=== PATIENT | male | born 1980 | race African-American/Black ===

== ENCOUNTER 2018-12-23 15:19 | Emergency (ER) | payer BC ==
[2018-12-23 15:26] VITALS: BP 155/89
[2018-12-23] MEDS ORDERED: METHYLPREDNISOLONE INJ 125 MG/2 ML SDV IM ONE (16:17)
--- NOTE | 2018-12-23 16:22 | ER Document Report ---
HPI - HPI Time Seen by Provider: 12/23/18 15:57 Pain Level: 3 Notes: Patient is a 38-year-old male who presents complaining of a rash to his left torso and left upper arm for the last 3 to 4 days. Patient states he did give plasma a few days before that, but has not had any pain or drainage from the site. Patient states that he does have irritation from the rash and some itching associated. He is not aware of any contact with plants, animals, eating new foods or on any other medicines that are new for him. He does have a history of hypertension. Denies drug allergies. No history of chickenpox. Denies any headache, fever, neck pain, URI, sore throat, chest pain, palpitations, syncope, cough, shortness of breath, wheeze, dyspnea, abdominal pain, nausea/vomiting/diarrhea, urinary retention, dysuria, hematuria, loss of control of bowel or bladder, numbness/tingling, muscle paralysis/weakness. - ROS Systems Reviewed and Negative: Yes All other systems reviewed and negative Past Medical History - Social History Smoking Status: Never Smoker Family History: Reviewed & Not Pertinent - Past Medical History Cardiac Medical History: Reports: Hx Hypertension - Immunizations Hx Diphtheria, Pertussis, Tetanus Vaccination: Yes Vertical Provider Document - CONSTITUTIONAL Agree With Documented VS: Yes Notes: PHYSICAL EXAMINATION: GENERAL: Well-appearing, well-nourished and in no acute distress. HEAD: Atraumatic, normocephalic. EYES: Pupils equal round and reactive to light, extraocular movements intact, sclera anicteric, conjunctiva are normal. ENT: Nares patent and without discharge. oropharynx clear without exudates. No tonsilar hypertrophy or erythema. Moist mucous membranes. NECK: Normal range of motion, supple without lymphadenopathy LUNGS: Breath sounds clear to auscultation bilaterally and equal. No wheezes rales or rhonchi. HEART: Regular rate and rhythm without murmurs, rubs, gallops. Musculoskeletal: FROM to passive/active. Strength 5+/5. Extremities: No cyanosis, clubbing, or edema b/l. Peripheral pulses 2+. Capillary refill less than 3 seconds. NEUROLOGICAL: Cranial nerves grossly intact. Normal speech, normal gait. Normal sensory, motor exams PSYCH: Normal mood, normal affect. SKIN: vesicular erythemic rash to the left trunk, axilla, and proximal left arm. There is also a small area to the rt neck. No fluctuance or abscess. Non- tender. - INFECTION CONTROL TRAVEL OUTSIDE OF THE [place] IN LAST 30 DAYS: No Course - Re-evaluation Re-evalutation: 12/23/18 16:19 Dr. Jacqueline camp'd pt and agrees with plan/dispo: Patient is an afebrile, well-hydrated, 38-year-old male who presents with nonspecific skin rash, suspect contact dermatitis. Shingles was within the differential, but crosses multiple dermatomes and does not have a history of chickenpox. No significant pain or tenderness associated. Vitals are acceptable without significant tachycardia, tachypnea, or hypoxia. PE is otherwise unremarkable. Patient is nontoxic-appearing and is tolerating p.o. without difficulty. Solu-Medrol given IM. Low suspicion for any necrotizing fasciitis, SJS, SSS, drug reaction, sepsis, meningitis, syphilis, Lyme disease, Darrington spotted fever, or other systemic emergent condition at this time. Patient aware that condition can change from initial presentation and he needs to monitor symptoms closely and seek medical attention with any acute changes. We will send home with a steroid taper as well. Recheck with your PCM in 2 to 3 days. Consider consult with dermatology. Return to the ED with any other worsening/concerning symptoms as reviewed. Patient is in agreement. - Vital Signs Vital signs: Temp Pulse Resp BP Pulse Ox 98.3 F 83 20 155/89 H 96 12/23/18 15:25 12/23/18 15:25 12/23/18 15:25 12/23/18 15:25 12/23/18 15:25 Discharge - Discharge Clinical Impression: Rash and nonspecific skin eruption Contact dermatitis Qualifiers: Contact dermatitis type: unspecified Contact dermatitis trigger: unspecified trigger Qualified Code(s): L25.9 - Unspecified contact dermatitis, unspecified cause Condition: Stable Disposition: HOME, SELF-CARE Instructions: Contact Dermatitis ([facility]) Additional Instructions: Keep the skin clean Wash with soap and water Keep the skin covered Tylenol/ibuprofen if needed Triple antibiotic ointment daily for any break in the skin Take medication as directed Monitor for any worsening symptoms Recheck with your PCM in 2-3 days Consider consult with dermatology for ongoing/worsening symptoms Return to the ED with any worsening symptoms and/or development of fever, headache, chest pain, palpitations, syncope, shortness of breath, trouble breathing, abdominal pain, n/v/d, abscess, purulent discharge, red streaks, worsening swelling, or other worsening symptoms that are concerning to you. Prescriptions: Prednisone [Deltasone 10 mg Tablet] 10 mg PO DAILY #18 tablet Forms: Elevated Blood Pressure Referrals: RISSA MERLOS DO [ACTIVE STAFF] - Follow up as needed
== END 2018-12-23 16:32 | disposition home or self-care (01) ==
LOC: ER 15:19
DX: L25.9 Unspecified contact dermatitis, unspecified cause (principal); I10 Essential (primary) hypertension
CPT/HCPCS: 99282; 96374; 87252; J2930

== ENCOUNTER 2019-01-29 06:03 | Emergency (ER) | payer OTHER, BC ==
--- NOTE | 2019-01-29 06:45 | ER Document Report ---
HPI - HPI Time Seen by Provider: 01/29/19 06:29 Pain Level: 4 Context: Patient is a 38-year-old male who presents to the emergency department with bilateral foot pain. Patient states that after working in the [employer] all day and being on his feet he developed bilateral foot pain. Patient states that it is worse with ambulating long distances. Patient states he has never had this type of pain before. Patient denies history of diabetes or skin breakdown. Patient denies injury. States that with his job he is up on his feet constantly. - MUSCULOSKELETAL Musculoskeletal: REPORTS: Extremity pain - bilateral feet Past Medical History - General Information source: Patient - Social History Smoking Status: Current Every Day Smoker Cigarette use (# per day): Yes - 6 cigarettes/day Chew tobacco use (# tins/day): No Frequency of alcohol use: None Drug Abuse: None Lives with: Alone Family History: Reviewed & Not Pertinent Patient has suicidal ideation: No Patient has homicidal ideation: No - Past Medical History Cardiac Medical History: Reports: Hx Hypertension Pulmonary Medical History: Reports: None EENT Medical History: Reports: None Neurological Medical History: Reports: None Endocrine Medical History: Reports: None Renal/ Medical History: Reports: None. Denies: Hx Peritoneal Dialysis Malignancy Medical History: Reports None GI Medical History: Reports: None Musculoskeletal Medical History: Reports None Skin Medical History: Reports None Psychiatric Medical History: Reports: None Traumatic Medical History: Reports: None Infectious Medical History: Reports: None Surgical Hx: Negative - Immunizations Hx Diphtheria, Pertussis, Tetanus Vaccination: Yes Vertical Provider Document - CONSTITUTIONAL Agree With Documented VS: Yes Exam Limitations: No Limitations General Appearance: No Apparent Distress - INFECTION CONTROL TRAVEL OUTSIDE OF THE [place] IN LAST 30 DAYS: No - HEENT HEENT: Atraumatic, Normocephalic, PERRLA - NECK Neck: Normal Inspection - RESPIRATORY Respiratory: Breath Sounds Normal, No Respiratory Distress - CARDIOVASCULAR Cardiovascular: Regular Rate, Regular Rhythm - GI/ABDOMEN Gastrointestinal: Abdomen Soft, Abdomen Non-Tender - BACK Back: Normal Inspection - MUSCULOSKELETAL/EXTREMETIES Notes: Upon evaluation patient's feet have a significant foul odor, there is no lesions, skin breakdown, or lacerations. Patient has multiple calluses to the volar aspect of the foot. There is no erythema or edema. Patient has +2 dorsalis pedi and posterior tibial pulses bilaterally, is noted to have pain with palpation to calcaneus bone bilaterally and the lateral aspect of both feet. - NEURO Level of Consciousness: Awake, Alert, Appropriate - DERM Integumentary: Warm Course - Re-evaluation Re-evalutation: 01/29/19 06:56 Initial evaluation was noted that the patient not take care of his feet appropriately as they had a significant foul odor. There was no obvious infection or open wounds. Patient states he is not a diabetic. Patient did have his work shoes on without socks. Patient states he does not wear socks to work and sweats all the time. Patients work shoes are significantly worn down and do not provide adequate support. I did educate the patient to wear socks, to keep his feet clean and dry and when possible wear supportive shoes as this should help with his discomfort. Patient states he did take Tylenol last night for his discomfort which did improve his pain. Patient instructed to take Tylenol and ibuprofen as needed for pain. Will provide patient with a work note for 1 day - Vital Signs Vital signs: Temp Pulse Resp BP Pulse Ox 97.5 F 78 17 140/83 H 96 01/29/19 06:09 01/29/19 06:09 01/29/19 06:09 01/29/19 06:09 01/29/19 06:09 Discharge - Discharge Clinical Impression: Foot pain, bilateral Condition: Stable Disposition: HOME, SELF-CARE Additional Instructions: Today you were seen in the emergency department for bilateral foot pain. Upon evaluation I do not believe a x-ray is needed as there is no injury, deformity or signs of infection. Please keep your feet clean and dry. Please wear socks as this can help absorb the sweat while you work. Wearing a more supportive shoe with cushion may help with your discomfort. I am providing you with a 1 day work note, please rest and elevate your feet and return to the emergency department for any worsening signs or symptoms to include feet swelling, redness, skin breakdown, fever or inability to ambulate. Forms: Return to Work
[2019-01-29] MEDS ORDERED: IBUPROFEN 600 MG TABLET PO ONE (07:01)
[2019-01-29 07:08] VITALS: BP 140/72
== END 2019-01-29 07:08 | disposition home or self-care (01) ==
LOC: ER 06:03
DX: M79.671 Pain in right foot (principal); M79.672 Pain in left foot; F17.210 Nicotine dependence, cigarettes, uncomplicated; I10 Essential (primary) hypertension
CPT/HCPCS: 99283

== ENCOUNTER 2019-02-15 09:33 | Emergency (ER) | payer BC, OTHER ==
[2019-02-15 09:41] VITALS: BP 157/96
--- NOTE | 2019-02-15 09:54 | ER Document Report ---
HPI - HPI Time Seen by Provider: 02/15/19 09:53 Pain Level: 0 Notes: Patient is a 38-year-old male with a history of hypertension who presents for medication refill of his lisinopril/HCTZ 20-12.5 mg. Patient states that he ran out recently and needs a prescription until he can get a refill from his family doctor. Patient states that he has been taking the medicine for some time now and tolerates it very well. He otherwise feels well. He is eating and drinking without difficulty. He is urinating normally and having normal bowel movements. No other concerns or complaints. Denies any headache, fever, neck pain, changes in vision/speech/mentation/hearing, URI, sore throat, chest pain, palpitations, syncope, cough, shortness of breath, wheeze, dyspnea, abdominal pain, nausea/vomiting/diarrhea, urinary retention, dysuria, hematuria, or rash. - ROS Systems Reviewed and Negative: Yes All other systems reviewed and negative Past Medical History - Social History Smoking Status: Unknown if Ever Smoked Family History: Reviewed & Not Pertinent - Past Medical History Cardiac Medical History: Reports: Hx Hypertension Renal/ Medical History: Denies: Hx Peritoneal Dialysis - Immunizations Hx Diphtheria, Pertussis, Tetanus Vaccination: Yes Vertical Provider Document - CONSTITUTIONAL Agree With Documented VS: Yes Notes: PHYSICAL EXAMINATION: GENERAL: Well-appearing, well-nourished and in no acute distress. HEAD: Atraumatic, normocephalic. EYES: Pupils equal round and reactive to light, extraocular movements intact, sclera anicteric, conjunctiva are normal. ENT: Nares patent and without discharge. oropharynx clear without exudates. No tonsilar hypertrophy or erythema. Moist mucous membranes. NECK: Normal range of motion, supple without lymphadenopathy LUNGS: Breath sounds clear to auscultation bilaterally and equal. No wheezes rales or rhonchi. HEART: Regular rate and rhythm without murmurs, rubs, gallops. Extremities: No cyanosis, clubbing, or edema b/l. Peripheral pulses 2+. Capillary refill less than 3 seconds. NEUROLOGICAL: Normal speech, normal gait. PSYCH: Normal mood, normal affect. SKIN: Warm, Dry, normal turgor, no rashes or lesions noted. - INFECTION CONTROL TRAVEL OUTSIDE OF THE [place] IN LAST 30 DAYS: No Course - Re-evaluation Re-evalutation: 02/15/19 09:56 Patient is an afebrile, well-hydrated, 38-year-old male who presents for medication refill of his blood pressure medication. Vitals are acceptable without significant tachycardia, tachypnea, or hypoxia. PE is otherwise. Patient is nontoxic-appearing and tolerating p.o. without difficulty. No work- up warranted at this time. Low suspicion for any systemic emergent condition at this time. I will send him home with a prescription refill for his blood pressure medication. Recheck with your PCM in 3 to 5 days. Return to the ED with any other worsening/concerning symptoms. Patient is in agreement. - Vital Signs Vital signs: Temp Pulse Resp BP Pulse Ox 97.8 F 76 18 157/96 H 96 02/15/19 09:40 02/15/19 09:40 02/15/19 09:40 02/15/19 09:40 02/15/19 09:40 Discharge - Discharge Clinical Impression: Medication refill Condition: Stable Disposition: HOME, SELF-CARE Additional Instructions: Maintain adequate fluid and food intake Take home medications as directed Low sodium/fat diet Exercise regularly Weight control Monitor blood pressure daily and keep a log Monitor symptoms for any acute changes Recheck with your PCM in 3-5 days Consider a follow-up with cardiology Return to the ED with any worsening symptoms and/or development of fever, headache, chest pain, palpitations, syncope, shortness of breath, trouble breathing, abdominal pain, n/v/d, blood in stool/urine, loss of control of bowel/bladder, urinary retention, muscle weakness/paralysis, numbness/tingling, or other worsening symptoms that are concerning to you. Prescriptions: Lisinopril/Hydrochlorothiazide [Lisinopril-Hctz 20-12.5 mg Tab] 1 each PO DAILY #30 tablet Forms: Elevated Blood Pressure Referrals: MARVIN LORENZO MD [ACTIVE STAFF] - Follow up as needed
== END 2019-02-15 09:54 | disposition home or self-care (01) ==
LOC: ER 09:33
DX: I10 Essential (primary) hypertension (principal)
CPT/HCPCS: 99281

== ENCOUNTER 2019-03-17 19:50 | Emergency (ER) | payer BC ==
[2019-03-17 20:49] VITALS: BP 148/101
== END 2019-03-18 00:48 | disposition left against medical advice (07) ==
LOC: ER 19:50
DX: Z53.21 Procedure and treatment not carried out due to patient leaving prior to being seen by health care provider (principal)

== ENCOUNTER 2019-03-18 07:11 | Emergency (ER) | payer BC ==
--- NOTE | 2019-03-18 09:08 | ER Document Report ---
HPI - HPI Patient complains to provider of: Skin rash, med refill Time Seen by Provider: 03/18/19 08:52 Onset: Yesterday Onset/Duration: Gradual Pain Level: Denies Context: Patient presents complaining of pruritic skin rash to the left upper extremity that started to develop yesterday. Patient does report having performed a yard work recently. Patient states he had similar rash in the past although denies any history of eczema. Patient also states that he ran out of his blood pressure medicine 3 days ago and needs a refill. Patient denies any headache chest pain shortness of breath or back pain. Associated Symptoms: denies: Chest pain, Nonproductive cough, Productive cough, Fever, Headache, Vomiting, Shortness of breath, Weakness Exacerbated by: Denies Relieved by: Denies Similar symptoms previously: Yes Recently seen / treated by doctor: No - ROS ROS below otherwise negative: Yes Systems Reviewed and Negative: Yes All other systems reviewed and negative - CONSTITUTIONAL Constitutional: DENIES: Fever, Chills - NEURO Neurology: DENIES: Headache, Weakness, Vision blurred, Dizzinesss / Vertigo - CARDIOVASCULAR Cardiovascular: DENIES: Chest pain - RESPIRATORY Respiratory: DENIES: Trouble Breathing - GASTROINTESTINAL Gastrointestinal: DENIES: Abdominal Pain - MUSCULOSKELETAL Musculoskeletal: DENIES: Back Pain - DERM Skin Color: Normal Skin Problems: Rash Past Medical History - General Information source: Patient - Social History Smoking Status: Current Every Day Smoker Chew tobacco use (# tins/day): Yes Frequency of alcohol use: Occasional Drug Abuse: None Occupation: food trades assistants Lives with: Family Family History: Reviewed & Not Pertinent Patient has suicidal ideation: No Patient has homicidal ideation: No - Past Medical History Cardiac Medical History: Reports: Hx Hypertension Renal/ Medical History: Denies: Hx Peritoneal Dialysis Surgical Hx: Negative - Immunizations Hx Diphtheria, Pertussis, Tetanus Vaccination: Yes Vertical Provider Document - CONSTITUTIONAL Agree With Documented VS: Yes Exam Limitations: No Limitations General Appearance: WD/WN, No Apparent Distress - INFECTION CONTROL TRAVEL OUTSIDE OF THE [place] IN LAST 30 DAYS: No - HEENT HEENT: Atraumatic, Normal ENT Exam, Normocephalic - NECK Neck: Normal Inspection, Supple. negative: Lymphadenopathy-Left, Lymphadenopathy-Right - RESPIRATORY Respiratory: Breath Sounds Normal, No Respiratory Distress - CARDIOVASCULAR Cardiovascular: Regular Rate, Regular Rhythm, No Murmur - BACK Back: Normal Inspection - MUSCULOSKELETAL/EXTREMETIES Musculoskeletal/Extremeties: PETR ROWLAND - NEURO Level of Consciousness: Awake, Alert, Appropriate Motor/Sensory: No Motor Deficit - DERM Integumentary: Warm, Dry, Rash - dry maculopapular rash to medial aspect of LUE Course - Re-evaluation Re-evalutation: 03/18/19 09:06 Called and spoke with pharmacy staff at [facility] who state that patient does have a prescription refill of his lisinopril HCTZ on file and that he can pick it up at 1030 today for refill. Patient with skin rash that looks like a contact dermatitis. Patient does report recent work outside in the yard. - Vital Signs Vital signs: Temp Pulse Resp BP Pulse Ox 97.9 F 80 18 141/95 H 94 03/18/19 07:16 03/18/19 07:16 03/18/19 07:16 03/18/19 07:16 03/18/19 07:16 Discharge - Discharge Clinical Impression: Dermatitis HTN (hypertension) Qualifiers: Hypertension type: unspecified Qualified Code(s): I10 - Essential (primary) hypertension Condition: Stable Disposition: HOME, SELF-CARE Instructions: Contact Dermatitis ([facility]), Corticosteroid Medication ([facility]), High Blood Pressure ([facility]) Additional Instructions: Return immediately for any new or worsening symptoms Followup with your primary care provider, call tomorrow to make a followup appointment [facility] pharmacy has a refill of your medication on file, pharmacy staff states that you can pick medication up at 1030 today. Prescriptions: Prednisone [Deltasone 10 mg Tablet] 10 mg PO ASDIR PRN #21 tablet PRN Reason: Forms: Smoking Cessation Education, Return to Work Referrals: CHARLEEN MAYFIELD MD [Primary Care Provider] - Follow up as needed
[2019-03-18] MEDS ORDERED: PREDNISONE 20 MG TABLET PO ONE (09:09)
[2019-03-18 09:16] VITALS: BP 137/97
== END 2019-03-18 09:17 | disposition home or self-care (01) ==
LOC: ER 07:11
DX: L30.9 Dermatitis, unspecified (principal); I10 Essential (primary) hypertension; T46.4X6A Underdosing of angiotensin-converting-enzyme inhibitors, initial encounter; T50.2X6A Underdosing of carbonic-anhydrase inhibitors, benzothiadiazides and other diuretics, initial encounter; Z91.128 Patient's intentional underdosing of medication regimen for other reason; Z91.14 Patient's other noncompliance with medication regimen; F17.200 Nicotine dependence, unspecified, uncomplicated
CPT/HCPCS: 99283; J7512